=== PATIENT | female | born 1995 | race Caucasian/White ===

== ENCOUNTER 2019-10-11 01:20 | Outpatient (CLI) | payer BC, OTHER, SELFPAY ==
[2017-01-20 07:14] VITALS: BMI 32.8
[2019-10-11 02:04] VITALS: BMI 30.3
--- NOTE | 2019-10-11 07:34 | OB.TRI.NOTE ---
- Problem List (1) Vaginal bleeding before 22 weeks gestation Status: Acute History of Present Illness Date of Service: 10/11/19 Was patient seen by the physician?: Yes Reason For Visit: BLEEDING Date of Service: 10/11/19 Final ODILIA: 03/06/20 Final ODILIA Source: US <20 weeks Gestational age: 19 Weeks and 0 Days History of Present Illness: Reports bright red bleeding that started last evening, but has since stopped. Concerned at 19 weeks gestation. Allergies iodine Allergy (Verified 10/11/19 02:06) Anaphylaxis Review of Systems Constitutional: Denies: Chills, Fever, Weight Change HEENT: Denies: Head Aches, Sinus Congestion, Sinus Drainage Cardiovascular: Denies: Chest Pain, Palpitations Respiratory: Denies: Cough, Shortness of breath at rest, Sputum production Gastrointestinal: Denies: Abdominal Pain, Nausea, Vomiting Genitourinary: Denies: Dysuria Musculoskeletal: Denies: Joint Pain, Joint Tenderness Skin: Denies: Rash, Wounds Neurological: Denies: Numbness, Tingling, Focal weakness Psychiatric: Denies: Anxiety, Depression, Homicidal Ideations, Suicidal Ideations Hematologic/ Lymphatic: Denies: Easy Bruising, Easy Bleeding Physical Exam General: Alert, Oriented x3, No apparent distress HEENT: Atraumatic, Normocephalic. Negative for: Thyromegaly, Lymphadenopathy Cardiovascular: Regular rate, Regular Rhythm Lungs: Clear to auscultation Abdomen: Bowel Sounds Present, Non Tender, Gravid Neurological: Deep Tendon Reflexes 2+/4 and Symmetrical, Neuro grossly intact EDUCATION DEPARTMENT REGISTRAR: Normal external genitalia. Negative for: Vulvar lesions Presentation: Unable to assess - 19 weeks gestation, deferred SVE as well NST - FHR Rate Baby A Baseline: 145 Uterine Activity:: absent Impression/Plan A: here for vaginal bleeding FHR 145 No UC P: Discharge home on rest To call office in AM for Ultrasound
== END 2019-10-11 02:53 | disposition home or self-care (01) ==
LOC: WPOUT 01:26 → WP 01:26
PROVIDERS: Visit Provider Obstetrics & Gynecology
DX: O20.9 Hemorrhage in early pregnancy, unspecified (principal); Z3A.19 19 weeks gestation of pregnancy
CPT/HCPCS: 59050; 99218; G0378

== ENCOUNTER → 2019-12-25 08:29 | Outpatient (CLI) | payer BC, OTHER, SELFPAY ==
[2019-12-25 09:25] LABS: Glucose GTT-Gestation. Fasting 82 mg/dL (<105)
[2019-12-25 10:39] LABS: Glucose GTT-Gestational 1 Hr 187 mg/dL (<190)
[2019-12-25 11:41] LABS: Glucose GTT-Gestational 2 Hr 95 mg/dL (<165)
[2019-12-25 12:32] LABS: Glucose GTT-Gestational 3 Hr 105 L (<145)
== END ==
PROVIDERS: Referring Provider Obstetrics & Gynecology; Visit Provider Obstetrics & Gynecology
DX: O99.810 Abnormal glucose complicating pregnancy (principal); Z3A.00 Weeks of gestation of pregnancy not specified
CPT/HCPCS: 36415; 82951; 82952

== ENCOUNTER 2020-03-07 18:50 | Inpatient (IN) | payer BC, OTHER, SELFPAY ==
[2020-03-07] VITALS (10 sets, daily range): BP systolic 101–129; BP diastolic 65–79; PULSE 96–118; TEMP 36.3–37.8; O2SAT 96–100; BMI 33.0
[2020-03-07] MEDS: Lactated Ringers 500 ML 999 ML IV (19:35)
--- NOTE | 2020-03-07 19:58 | PCM.HP.OB ---
- Problem List (1) 40 weeks gestation of Status: Acute History Date of Admission: 03/07/20 Final ODILIA: 03/06/20 Final ODILIA Source: US <20 weeks Gestational age: 40 Weeks and 1 Days History of this : This is a 24 year-old, G [3], P [1011], at 40 1/7 weeks gestational age presenting in active labor with regular contractions since 4pm. Allergies iodine Allergy (Verified 10/11/19 02:06) Anaphylaxis Home Medications: Home Medications Prenatabs FA 1 tab PO DAILY 11/05/16 Smoking Status: Never smoker Alcohol: None Number of Fetus(es): 1 NST - FHR Rate Baby A Baseline: 130 Variability:: Moderate Accelerations:: 15 x 15 Decelerations:: None NST Reactive:: Yes FHR Category:: Category I Uterine Activity:: 2 History Past Pregnancies: Past Pregnancies Delivery Date Name GA/ Weeks Outcome Route Wt Sex Labor Length Anesthesia Delivery Location Provider FOB 10/2014 7 SAB Home 12/2016 [place] 41 nuchal x 1, shoulder dystocia 8lb8oz M 14 None [facility] Labs: Mom's Problem List Problem Status Onset Code (spontaneous vaginal delivery) Acute O80 40 weeks gestation of Acute Z3A.40 Mom's Labs & Results 03/07/20 03/07/20 03/07/20 19:35 19:35 19:45 WBC 15.2 H RBC 4.19 L Hgb 11.4 L Hct 35.5 L MCV 84.7 MCH 27.2 MCHC 32.1 RDW Std Deviation 39.2 RDW Coeff of Marianela 13.1 Plt Count 220 MPV 11.3 Immature Gran % (Auto) 0.600 Neut % (Auto) 82.1 H Lymph % (Auto) 10.8 L [place] % (Auto) 6.4 Eos % (Auto) 0.0 Baso % (Auto) 0.1 Absolute Neuts (auto) 12.5 H Absolute Lymphs (auto) 1.64 Nucleated RBC % 0 COVID-19 (DAYSI) Not Detected Blood Type O NEGATIVE Antibody Screen NEGATIVE Course Did the patient receive Yes care? Labs Blood Type: O RH: NEGATIVE Rubella status Immune HbSAg Negative Date Done: 08/24/19 Chlamydia Negative Gonorrhea Negative HIV/AIDS Non-Reactive Group B Strep: Negative Current Obstetrical History Gestational Diabetes No Incompetent Cervix No Infertility No IUGR No Macrosomia No Hypertension/Pre-eclampsia No Placenta Previa/Abruption No PTL/PROM No Uterine anomaly No Oligohydramnios No Polyhydramnios No Multiple gestation No Past Medical History Asthma No Diabetes No Hypertension No Heart disease No Mitral valve prolapse No Neurologic/Seizure disorder/ No Migraines Kidney disease No Liver disease No Varicosities No Clotting disorders/Hx of DVT No Thyroid Dysfunction No Other medical diseases No Psychiatric disorders No Major trauma No Abnormal PAP smear No Sleep apnea No Mammogram in the last 2 years No Social History Marital Status: SINGLE Alleged father [place] Hx Smoking No Smoking Status Former smoker Number of Visits: 12 Review of Systems Constitutional: Denies: Chills Eyes: Denies: Blurred vision, Vision Change HEENT: Denies: Head Aches, Sore Throat, Visual Changes Cardiovascular: Denies: Chest Pain Respiratory: Denies: Shortness of Breath Gastrointestinal: Denies: Nausea, Vomiting Physical Exam Vitals: Vital Signs Temp Pulse BP Pulse Ox 97.4 F L 107 H 112/79 98 03/07/20 18:48 03/07/20 18:48 03/07/20 18:48 03/07/20 18:48 General: Alert, Oriented x3, Cooperative, No apparent distress HEENT: Atraumatic, Normocephalic Cardiovascular: Regular rate, Regular Rhythm, Normal S1, Normal S2 Lungs: Clear to auscultation, Normal air movement Abdomen: Soft, Non Tender, Non-Distended, Gravid Extremities:: No edema Neurological: Neuro grossly intact Estimated gestational size: Appropriate for gestational size Presentation: Cephalic Cervix Dilation (cm): 4 Station: -2 Effacement (%): 80 - per RN exam Assessment/Plan All Active Problems (spontaneous vaginal delivery) (Acute) 40 weeks gestation of (Acute) This is a 24 year-old, G [\3], P [1011], at 40 1/7 weeks gestational age in labor, Cat I FHR -Expectant management -Maternal and statuses reassuring
[2020-03-07 20:06] LABS: Absolute Lymphocyte Count 1.64 X10^3/uL (0.83-4.51); Absolute Neutrophil Count 12.5 X10^3/uL (2.0-7.7); Basophil# 0.02 X10^3/uL; Basophil% 0.1 % (0-1); Hematocrit 35.5 % (37-47); Hemoglobin 11.4 g/dL (12.0-15.0); Lymphocyte # 1.64 X10^3/ul (4.0); Lymphocyte % 10.8 % (19-41); Mean Corp Hgb Conc 32.1 g/dL (32-36); Mean Corpuscular Hgb 27.2 pg (27.0-32.0); Mean Corpuscular Volume 84.7 fL (81-99); Mean Platelet Vol. 11.3 fl (6.2-12.0); Monocyte# 0.98 X10^3/uL; Monocyte% 6.4 % (0-10); NRBC Flagged by Analyzer 0 % (0-5); Neutrophil # 12.48 X10^3/uL (2.7-7.7); Neutrophil % 82.1 % (47-70); Platelet Count 220 K/mm3 (150-450); RBC Distribution Width CV 13.1 % (11.6-14.6); RBC Distribution Width SD 39.2 fl (35.1-43.9); Red Blood Count 4.19 M/mm3 (4.2-5.4); White Blood Count 15.2 K/mm3 (4.4-11.0)
[2020-03-07] MEDS: Lactated Ringers 1,000 ML 50 ML IV (20:06)
[2020-03-07] MEDS: Oxytocin 30 units/NS 500 ml 30 UNITS/500 ML IV.SOLN 334 UNITS IV (23:20)
--- NOTE | 2020-03-07 23:51 | PCM.OPRPT ---
Problem List (1) 40 weeks gestation of Status: Acute (2) (spontaneous vaginal delivery) Status: Acute Vaginal Delivery Maternal Presentation: Active Labor Amniotic Membrane Rupture Type: Spontaneous Rupture of Membrane time: [id number] Amniotic Fluid Description: Clear, - - terminal meconium Final ODILIA: 03/06/20 Final ODILIA Source: US <20 weeks Gestational age: 40 Weeks and 1 Days Date of Procedure: 03/07/20 Pre-Operative Diagnosis: 40 1/7wga Post-Operative Diagnosis: 40 1/7wga Surgery/ Procedure Performed: Spontaneous Vaginal Delivery Type of Anesthesia: None Description of Procedure: Patient was FD with bulging perineum. She pushed to deliver infant in SILAS with tight nuchal cord unable to be reduced. Infant mouth and nares were bulb suctioned at the perineum, then shoulders delivered. The cord was reduced and infant placed on the maternal abdomen and further attended by nursery personnel. The cord was doubly clamped and cut at 3 minutes of life. Cord blood and cord gas specimen were obtained. The placenta delivered spontaneously and appeared intact on inspection. Perineum intact. Sponge and needle counts correct x 2. Presentation: Vertex Placental Delivery Description: Spontaneous Placenta Disposition: [facility] Cord Vessel Description: 3 Vessels Nuchal Cord Compression: With compression Cord Gases drawn per routine: ABG, VBG Cord Entanglement: Around neck x 1, tight Estimated Blood Loss: 100 ml Infant A gender: Female (1 minute): 8 (5 minute): 9 Episiotomy Description: None Laceration: None Medications given after delivery: IV Pitocin Complications: None
[2020-03-08] VITALS (22 sets, daily range): BP systolic 95–111; BP diastolic 58–76; PULSE 70–108; RESP 16–18; TEMP 35.8–37.7; O2SAT 96–99
[2020-03-08] MEDS: Prenatal Vits Tablet 1 TABLET PO (12:15)
--- NOTE | 2020-03-08 17:49 | PN.OBGYN_ITS ---
Patient Problems: Active and Suspected Problems (spontaneous vaginal delivery) (Acute) 40 weeks gestation of (Acute) Subjective: Patient seen earlier in day, but was sleeping comfortably. I returned to room after she was awake. Winter denies painfulness or heavy lochia. She is bottlefeeding. No complaints. Objective: AVSS - Physical Exam Vitals/I&O's: Vital Signs Temp Pulse Resp BP Pulse Ox 97.5 F L 88 16 100/64 99 03/08/20 16:35 03/08/20 16:38 03/08/20 16:35 03/08/20 16:38 03/08/20 12:05 Oxygen Delivery Method Room Air Weight: 76.657 kg Body Mass Index (BMI) 33.0 Intake and Output for Last 24 Hours 03/06/20 03/07/20 03/08/20 23:59 23:59 23:59 Intake Total 1262.00 / 1262.00 306.17 / 306.17 Output Total 150 / 150 1000 / 1000 Balance 1112.00 / 1112.00 -693.83 / -693.83 General: Alert, Oriented x3, Cooperative, No apparent distress HEENT: Atraumatic, Normocephalic Lungs: Clear to auscultation, Normal air movement Cardiovascular: Regular rate, Regular Rhythm, Normal S1, Normal S2 Abdomen: Soft, Non Tender, Non-Distended, - - Fundus firm and nontender, lochia scant Extremities: No edema, No Calf Tenderness Neurological: Neuro grossly intact Psych/Mental Status: Normal Affect, Appropriate, Alert and oriented to time, place, person, mood and affect Laboratory Results 03/07/20 19:35: WBC 15.2 H, RBC 4.19 L, Hgb 11.4 L, Hct 35.5 L, MCV 84.7, MCH 27.2, MCHC 32.1, RDW Std Deviation 39.2, RDW Coeff of Marianela 13.1, Plt Count 220, MPV 11.3, Immature Gran % (Auto) 0.600, Neut % (Auto) 82.1 H, Lymph % (Auto) 10.8 L, [place] % (Auto) 6.4, Eos % (Auto) 0.0, Baso % (Auto) 0.1, Absolute Neuts (auto) 12.5 H, Absolute Lymphs (auto) 1.64, Nucleated RBC % 0 03/07/20 19:35: Blood Type O NEGATIVE, Antibody Screen NEGATIVE 03/07/20 19:45: COVID-19 (DAYSI) Not Detected Current Medications Acetaminophen (Tylenol) 1,000 mg PO Q8H PRN PRN PRN Reason: Pain Score 1-3/10 Bisacodyl (Dulcolax) 10 mg RECTAL UD PRN PRN Reason: If no BM Dibucaine (Dibucaine) 1 applic TOPICAL TID PRN PRN; Protocol PRN Reason: Discomfort Hydrocortisone (Hytone) 1 applic TOPICAL TID PRN PRN; Protocol PRN Reason: Discomfort Ibuprofen (Motrin) 600 mg PO Q6H PRN PRN PRN Reason: Pain Score 1-3/10 Methylergonovine Maleate (Methergine) 0.2 mg IM X1 PRN PRN Reason: Excess bleeding/uterine atony Ondansetron HCl (Zofran) 4 mg IV Q4H PRN PRN PRN Reason: NAUSEA Multivit/Folic Acid/Iron (Prenatabs Fa) 1 tablet PO DAILY VALENTE Last Admin: 03/08/20 12:15 Dose: 1 tablet Documented by: Senna/Docusate Sodium (Senokot-S, Scalrett-Colace) 1 - 2 tablet PO DAILY PRN PRN PRN Reason: Constipation Simethicone (Mylicon) 80 mg PO PCHS PRN PRN Reason: Indigestion/Stomach pain Sodium Chloride () 5 - 15 ml IV UD PRN PRN Reason: SALINE FLUSH Medical Necessity - Tobacco Use Smoking Status: Former smoker Assessment/Plan All Active Problems (spontaneous vaginal delivery) (Acute) 40 weeks gestation of (Acute) This is a 24 year-old, G [\3], P [2011 PPD#1 s/p doing well. -Rh negative, infant also Rh negative -Routine care -Plan for dc home tomorrow
[2020-03-09 00:16] VITALS: BP 103/62; PULSE 79
[2020-03-09 01:58] VITALS: BP 103/62; PULSE 79; RESP 18; TEMP 36.3
[2020-03-09 07:51] VITALS: BP 102/55; PULSE 67
--- NOTE | 2020-03-09 08:02 | PCM.PN.OB ---
Patient Problems: Active and Suspected Problems (spontaneous vaginal delivery) (Acute) 40 weeks gestation of (Acute) Subjective: No issues overnight and no complaints. Feels good. Objective: AVSS - Physical Exam Vitals/I&O's: Vital Signs Temp Pulse Resp BP Pulse Ox 97.3 F L 67 18 102/55 L 99 03/09/20 01:58 03/09/20 07:51 03/09/20 01:58 03/09/20 07:51 03/08/20 12:05 Oxygen Delivery Method Room Air Weight: 76.657 kg Body Mass Index (BMI) 33.0 Intake and Output for Last 24 Hours 03/07/20 03/08/20 03/09/20 23:59 23:59 23:59 Intake Total 1262.00 / 1262.00 306.17 / 306.17 Output Total 150 / 150 1000 / 1000 Balance 1112.00 / 1112.00 -693.83 / -693.83 General: Alert, Oriented x3, Cooperative, No apparent distress HEENT: Atraumatic, Normocephalic Lungs: Clear to auscultation, Normal air movement Cardiovascular: Regular rate, Regular Rhythm, Normal S1, Normal S2 Abdomen: Soft, Non Tender, Non-Distended, - - Fundus firm and nontender, lochia scant Extremities: No edema, No Calf Tenderness Neurological: Neuro grossly intact Psych/Mental Status: Normal Affect, Appropriate, Alert and oriented to time, place, person, mood and affect Current Medications Acetaminophen (Tylenol) 1,000 mg PO Q8H PRN PRN PRN Reason: Pain Score 1-3/10 Bisacodyl (Dulcolax) 10 mg RECTAL UD PRN PRN Reason: If no BM Dibucaine (Dibucaine) 1 applic TOPICAL TID PRN PRN; Protocol PRN Reason: Discomfort Hydrocortisone (Hytone) 1 applic TOPICAL TID PRN PRN; Protocol PRN Reason: Discomfort Ibuprofen (Motrin) 600 mg PO Q6H PRN PRN PRN Reason: Pain Score 1-3/10 Methylergonovine Maleate (Methergine) 0.2 mg IM X1 PRN PRN Reason: Excess bleeding/uterine atony Ondansetron HCl (Zofran) 4 mg IV Q4H PRN PRN PRN Reason: NAUSEA Multivit/Folic Acid/Iron (Prenatabs Fa) 1 tablet PO DAILY VALENTE Last Admin: 03/08/20 12:15 Dose: 1 tablet Documented by: Senna/Docusate Sodium (Senokot-S, [place]-Colace) 1 - 2 tablet PO DAILY PRN PRN PRN Reason: Constipation Simethicone (Mylicon) 80 mg PO PCHS PRN PRN Reason: Indigestion/Stomach pain Sodium Chloride () 5 - 15 ml IV UD PRN PRN Reason: SALINE FLUSH Medical Necessity - Tobacco Use Smoking Status: Former smoker Assessment/Plan All Active Problems (spontaneous vaginal delivery) (Acute) 40 weeks gestation of (Acute) This is a 24 year-old, G [\3], P [2011 PPD#2 s/p doing well. -Rh negative, also Rh negative -Routine care -d/c home
--- NOTE | 2020-03-09 08:04 | DCINST_ITS ---
Discharge Diet: No Restrictions Discharge Activity: Return to Normal Activity, May Shower, May Take a Tub Bath May resume sexual activity in: 4-6 weeks Lifting Restrictions: 10-20 lb Call your doctor if you observe: Inability to urinate, Inability to have a bowel movement, Using more than one pad per hour, Shortness of breath, Calf discomfort, Uncontrolled pain Additional Instructions: If you experience any of the following, contact your healthcare provider. * Bleeding that soaks a pad every hour for 2 hours * Fever 100.4 or higher * Unrelieved incision or abdominal pain * Swelling, redness, discharge or bleeding from your incision or episiotomy site * Your incision begins to separate * Problems urinating (including inability to urinate or burning while urinating). * Visual changes * Severe headache * Flu-like symptoms * Pain or redness in one of both of your breasts * Pain, warmth, tenderness or swelling in your legs, especially the calf area * Frequent nausea and vomiting * Symptoms of depression or anxiety If you experience any of the following, call 911 or go to the nearest Emergency Room. * Chest pain * Problems breathing * Seizure activity * Partial or complete paralysis of a body part, slurred speech, weakness or drooping of the face, or a sudden inability to walk or hold your balance Allergies/Adverse Reactions: Allergies iodine Allergy (Verified 10/11/19 02:06) Anaphylaxis Medications to take at Discharge Prenatabs FA 1 tab PO DAILY 11/05/16 Please Follow Up With: Shameka De La O MD When: 6 weeks Primary Care Physician: Care Physician,No Primary [Primary Care Provider] - Test Results: Test results from this visit will be discussed in further detail at your follow- up appointment, if applicable.
--- NOTE | 2020-03-09 08:04 | PCM.DCVAG ---
Discharge Diet: No Restrictions Discharge Activity: Return to Normal Activity, May Shower, May Take a Tub Bath May resume sexual activity in: 4-6 weeks Lifting Restrictions: 10-20 lb Call your doctor if you observe: Inability to urinate, Inability to have a bowel movement, Using more than one pad per hour, Shortness of breath, Calf discomfort, Uncontrolled pain Additional Instructions: If you experience any of the following, contact your healthcare provider. Bleeding that soaks a pad every hour for 2 hours Fever 100.4 or higher Unrelieved incision or abdominal pain Swelling, redness, discharge or bleeding from your incision or episiotomy site Your incision begins to separate Problems urinating (including inability to urinate or burning while urinating). Visual changes Severe headache Flu-like symptoms Pain or redness in one of both of your breasts Pain, warmth, tenderness or swelling in your legs, especially the calf area Frequent nausea and vomiting Symptoms of depression or anxiety If you experience any of the following, call 911 or go to the nearest Emergency Room. Chest pain Problems breathing Seizure activity Partial or complete paralysis of a body part, slurred speech, weakness or drooping of the face, or a sudden inability to walk or hold your balance Allergies/Adverse Reactions: Allergies iodine Allergy (Verified 10/11/19 02:06) Anaphylaxis Medications to take at Discharge Prenatabs FA 1 tab PO DAILY 11/05/16 Please Follow Up With: Shameka De La O MD When: 6 weeks Primary Care Physician: Care Physician,No Primary [Primary Care Provider] - Test Results: Test results from this visit will be discussed in further detail at your follow-up appointment, if applicable.
[2020-03-09 08:10] VITALS: BP 102/55; PULSE 67; RESP 14; TEMP 36.5; O2SAT 98
== END 2020-03-09 10:10 | disposition home or self-care (01) | DRG 807 ==
LOC: WPOUT 18:53 → WP 18:53
PROVIDERS: Admitting Provider Obstetrics & Gynecology; Visit Provider Obstetrics & Gynecology
DX: O69.1XX0 Labor and delivery complicated by cord around neck, with compression, not applicable or unspecified (principal); O77.0 Labor and delivery complicated by meconium in amniotic fluid; Z87.891 Personal history of nicotine dependence; Z3A.40 40 weeks gestation of pregnancy; Z37.0 Single live birth
CPT/HCPCS: 59025; 59050; 85025; 86850; 86900; 86901; 87635; 99218; G2023; J7120; G0378; U0003